=== PATIENT | female | born 1940 | race Caucasian/White ===

== ENCOUNTER 2016-12-24 09:51 | Day surgery (SDC) | payer MEDICARE ==
[2016-12-24] MEDS ORDERED: PROPOFOL 10 MG/ML VIAL IV ONE (14:00)
[2016-12-24] MEDS ORDERED: LIDOCAINE 2% MDV (20MG/ML) 20ML VIAL IV ONE ×2 (14:00→15:23)
[2016-12-24] MEDS ORDERED: EPINEPHRINE 1 MG/ML AMPUL SQ ONE (15:23)
[2016-12-24] MEDS ORDERED: DICLOFENAC SODIUM 2.5 ML DROPS OPTH ONE (15:23)
[2016-12-24] MEDS ORDERED: NEOMYCIN/POLY./DEXAM OPTH OINT OPTH ONE (15:23)
[2016-12-24] MEDS ORDERED: TETRACAINE HCL 0.5% OPTH 2ML SOLU OPTH ONE (15:23)
[2016-12-24] MEDS ORDERED: TOBRAMYCIN 0.3% OPTH DROP 5 ML BTL OPTH ONE (15:23)
[2016-12-24] MEDS ORDERED: LIDOCAINE 1% MPF 100MG/10ML AMPULE IV ONE (15:23)
[2016-12-24] MEDS ORDERED: PHENYLEPHRINE HCL 2.5% OPTH 2ML BTL OP ONE (15:23)
[2016-12-24] MEDS ORDERED: PREDNISOLONE ACETATE 1% OPTH 10ML BOTTLE OPTH ONE (15:23)
[2016-12-24] MEDS ORDERED: TROPICAMIDE 1% 15ML BTL OP ONE (15:23)
[2016-12-24] MEDS ORDERED: TETRACAINE HCL 0.5% 15 ML OPTH BTL OPTH ONE (15:23)
== END 2016-12-24 12:42 | disposition home or self-care (01) ==
LOC: SUR 09:51
PROVIDERS: ATTEND Ophthalmology
DX: H25.11 Age-related nuclear cataract, right eye (principal); I10 Essential (primary) hypertension
CPT/HCPCS: J0171; J3490

== ENCOUNTER 2017-01-07 07:31 | Day surgery (SDC) | payer MEDICARE ==
[2017-01-07] MEDS ORDERED: TOBRAMYCIN 0.3% OPTH DROP 5 ML BTL OPTH ONE (10:58)
[2017-01-07] MEDS ORDERED: LIDOCAINE 2% MDV (20MG/ML) 20ML VIAL IV ONE ×2 (10:58→12:58)
[2017-01-07] MEDS ORDERED: NEOMYCIN/POLY./DEXAM OPTH OINT OPTH ONE (10:58)
[2017-01-07] MEDS ORDERED: PHENYLEPHRINE HCL 2.5% OPTH 2ML BTL OP ONE (10:58)
[2017-01-07] MEDS ORDERED: EPINEPHRINE 1 MG/ML AMPUL SQ ONE (10:58)
[2017-01-07] MEDS ORDERED: TROPICAMIDE 1% 15ML BTL OP ONE (10:58)
[2017-01-07] MEDS ORDERED: PREDNISOLONE ACETATE 1% OPTH 10ML BOTTLE OPTH ONE (10:58)
[2017-01-07] MEDS ORDERED: TETRACAINE HCL 0.5% 15 ML OPTH BTL OPTH ONE (10:58)
[2017-01-07] MEDS ORDERED: DICLOFENAC SODIUM 2.5 ML DROPS OPTH ONE (10:58)
[2017-01-07] MEDS ORDERED: PROPOFOL 10 MG/ML VIAL IV ONE (12:58)
--- NOTE | 2017-01-07 16:40 | OP NOTE CHAMES ---
DATE OF PROCEDURE: 01/07/17 PREOPERATIVE DIAGNOSES: 1. Nuclear sclerotic cataract, keft eye. 2. Stigmatism, left eye. POSTOPERATIVE DIAGNOSES: 1. Nuclear sclerotic cataract, left eye. 2. Stigmatism, left eye. OPERATION: Phacoemulsification of cataractous lens with implantation of Toric intraocular lens. SURGEON: Agustín Tubbs M.D. LENS IMPLANT USED: Johnson Model [id number] +18.0 diopters. PROCEDURE IN DETAIL: The patient was brought to the Preoperative Area where she was given standard reference zavala under topical anesthesia to the left eye at the horizontal position. She was then blocked and prepped and draped in the usual fashion for eye surgery and brought to the Operating Room where she was prepped and draped. A lid speculum was then placed in the patient's left eye and attention was directed to the temporal limbus. A paracentesis incision was placed two hours to the left and right of the intended clear corneal incision and the chamber deepened with Viscoelastic. Using the standard reference zavala, the final lens positioning zavala were placed on the cornea at the 90-degree position. The temporal incision was then created of 2.4 mm cord length and dissected into clear cornea. The anterior chamber was entered with a keratome and the circular capsulorrhexis was accomplished without difficulty. Hydrodissection of the lens was performed and the nucleus of the lens was removed in a [id number] technique. The residual cortical material was irrigated and aspirated from the eye. The intraocular lens was injected into the eye and placed in a position 10-degrees short of the intended final axis. The lens placed was an Johnson Model [id number] +18.0 diopters. Viscoelastic was irrigated and aspirated from the eye after which the lens was redialed into position at the 90-degree janette. The incisions were noted to be watertight. They were hydrated with a small cannula. The speculum was removed and the eye was patched with ointment and the patient transferred to Recovery in satisfactory condition to be re-examined later in the afternoon. Agustín Tubbs M.D. Date & Time JOB NUMBER: [id number] MTDD
== END 2017-01-07 10:10 | disposition home or self-care (01) ==
LOC: SUR 07:31
PROVIDERS: ATTEND Ophthalmology
DX: H25.12 Age-related nuclear cataract, left eye (principal); I10 Essential (primary) hypertension
CPT/HCPCS: J0171